=== PATIENT | male | born 1990 | race Caucasian/White ===

== ENCOUNTER 2018-08-02 15:45 | Emergency (ER) | payer BC, OTHER ==
[~2018-08-02] VITALS: Ht 180.3 cm; Wt 131.8 kg
[2018-08-02] MEDS ORDERED: XANA1TAB2 PO (15:49)
[2018-08-02 16:22] VITALS: BP 175/93
--- NOTE | 2018-08-02 16:41 | REP ---
RIGHT KNEE, SIX VIEWS: HISTORY: Pain. There is no acute fracture or dislocation. The joint spaces are normal in appearance. IMPRESSION:There is no acute fracture or dislocation. Electronically Signed by Syed Napier MD 08/02/2018 04:45 P
== END 2018-08-02 17:17 | disposition home or self-care (01) ==
LOC: M ED 15:45
DX: M25.561 Pain in right knee (principal)

== ENCOUNTER 2023-11-07 15:38 | Emergency (ER) | payer BC, OTHER ==
[~2023-11-07] VITALS: Ht 182.9 cm; Wt 152.8 kg
[~2023-11-07 15:38] MED LIST: XANA1TAB2 PO
[2023-11-07 15:41] VITALS: BP 168/84; TEMP 98; O2SAT 96
== END 2023-11-07 18:28 | disposition left against medical advice (07) ==
LOC: M ED 15:38
DX: Z53.21 Procedure and treatment not carried out due to patient leaving prior to being seen by health care provider (principal)